=== PATIENT | female | born 1945 | race Caucasian/White ===

== ENCOUNTER 2020-04-18 06:59 | Observation (INO) ==
--- NOTE | 2020-04-18 08:07 | History & Physical Bridge Note ---
Date of Service April 18, 2020 History & Physical Bridge Note I have examined the patient, reviewed the History & Physical and in the interval since the performance of the History & Physical I have noted the following changes of clinical significance: no changes noted
--- NOTE | 2020-04-18 08:08 | Pre Anesthesia Assessment ---
Date of Service April 18, 2020 Pre Sedation Assessment Vital Signs Pulse Resp BP Pulse Ox 04/18/20 07:41 79 20 143/89 H 99 Cardiovascular RRR, no murmur, no edema Respiratory normal respiratory effort, lungs clear to auscultation Pre-Sedation Airway Assessment Smoking Status: Former smoker Hx Sleep Apnea: No Short, Thick Neck: No Thyromental Distance: > or= 3.5 Finger Breadths Oral Cavity: + WNL Mallampati Class: II ASA: ASA3 NPO Status Date of Last Intake of Fluids: 04/18/20 Time of Last Intake of Fluids: 06:00 Date of Last Intake of Solid Food: 04/17/20 Time of Last Intake of Solid Foods: 21:00 Procedure Planning Contraindications for Sedation: none Current Medications Reviewed: Yes Notes The planned sedation has been discussed with the patient. Informed Consent was obtained. I have identified the patient, determined the appropriateness of sedation and have assessed the patient immediately prior to the procedure. All medicine(s) and interventions are by my order.
[2020-04-18] MEDS ORDERED: HEPARIN (PORCINE) 1000 UNIT/ML 10 ML (CATH LAB USE ONLY) ONE (08:14)
[2020-04-18] MEDS ORDERED: fentaNYL citrate 100 MCG/2 ML VIAL ONE (08:15)
[2020-04-18] MEDS ORDERED: MIDAZOLAM HCL 1 MG/ML 2ML VIAL ONE (08:16)
[2020-04-18] MEDS ORDERED: NiCARDipine HCL INJ 2.5 MG/ML 10 ML AMP ONE (08:17)
[2020-04-18] MEDS ORDERED: NITROGLYCERIN/D5W 100MCG/ML 20ML SYR ONE (08:17)
[2020-04-18] MEDS ORDERED: FUROSEMIDE 40 MG/4 ML VIAL IV ONE (09:05)
--- NOTE | 2020-04-18 09:23 | Cardiac Catheterization ---
Cardiac Cath Procedure Full Procedure Date April 18, 2020 Pre-Procedure Diagnosis Pre-Procedure Diagnosis: Angina and Positive Stress Test AUC Score AUC Score: 7 Post-Procedure Diagnosis Post-Procedure Diagnosis: Severe CAD and Elevated Intracardiac Pressures Procedure(s) Performed Procedure(s) Performed: Coronary Angiography and Left Heart Cath Eye Glass Frame Polisher Cal Tovar DO Manager Of Warehouse(s) Doyle FLOOR MOLDER Estimated Blood Loss Estimated Blood Loss: 7cc Medication(s) Medication(s): Fentanyl, Heparin, Lidocaine 1%, Nicardipine, Nitroglycerin and Versed Summary of Findings 75% ostial RPDA Elevated left ventricular end diastolic pressure Hemodynamics Rest Ao:: 135/66/87 Final Ao: 146/66/101 LV: 138/-08/28 Recommendations Recommendations: PCI without planned CABG Specimens Specimens: None Radiation Exposure (mGy) 994 Contrast (mls) 35 Fluids (cc crystalloids) Fluids (cc crystalloids): 15 Nss Drains Drains: N/A Anesthesia Moderate sedation. Start 0837. Stop 0903. Sedation Monitor: Louis MOSLEY Procedural Complication(s) None Disposition Patient remained in labor specialist for PCI I attest to the content of the Intraoperative Record and any orders documented therein. Any exceptions are noted below. 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 Lexiscan nuclear stress positive for posterior ischemia 2013) Coronary Anatomy Dominant: Right Left Main (% Stenosis): Normal LAD (% Stenosis): Proximal (30%, mild calcification) and Mid (20% distal to D2) D1 (% Stenosis): Normal D2 (% Stenosis): Normal D3 (% Stenosis): Normal Circumflex (% Stenosis): Normal OM1 (% Stenosis): Normal OM2 (% Stenosis): Normal OM3 (% Stenosis): Normal L PL1 (% Stenosis): Normal RCA (% Stenosis): Proximal (30-40% followed by segament of mild diffuse disease 20%) and Distal (10%) R PDA (% Stenosis): Ostial (75%) R PL1 (% Stenosis): Normal R PL2 (% Stenosis): Normal Diagnostic Physicians Name: Cal Tovar DO Status: Elective Closure Device Percutaneous Entry Location: Radial Closure Device: Radial Band Recommendations: PCI without planned CABG Intraprocedure Events Significant Disection: No Perforation: No
[2020-04-18] MEDS ORDERED: CLOPIDOGREL BISULFATE 300 MG TAB ONE (09:31)
--- NOTE | 2020-04-18 09:36 | Post Anesthesia Assessment ---
Date of Service April 18, 2020 Post Sedation Assessment Vital Signs Pulse Resp BP Pulse Ox 04/18/20 07:41 79 20 143/89 H 99 Recovery Score Activity: Moves 4 extremities Respiration: Deep Breath/Cough Circulation: +/-20% PreAnes Value Consciousness: Fully Awake Oxygen Saturation: > 92% On Room Air Discharge Sedation Level of Care: Fast Track Phase II Post Sedation Plan On clinical assessment, the patient appears to have tolerated the sedation without complications. Patient is recovering as anticipated. Patient will continue to be monitored by nursing and may be discharged when sedation discharge criteria are met per below protocol. Upon Completions of procedure up to 15 minutes continue every 5 minute vital signs and the P.A.R. score; then discharge to a Phase I or Fast Track to Phase II per the following guidelines: * Discharge Patient to appropriate Phase II area if PAR is 8 or greater or return to pre- procedure baseline. The post - procedure orders will be as directed. * If PAR score is less than 8 or not return to pre-procedure baseline then patient will follow Phase I monitoring till PAR is reached for Phase II. The Phase I may be done in procedure room or may call to secure a Phase I area. * If naloxone or flumazenil are used for reversal, hold in Phase I for continued monitoring from when last reversal dose was given for a minimum of 60 minutes or longer pending the nurse and/or physician discretion of patient condition before discharge to Phase II. Please call the Sedation Physician to re-evaluate and complete post-note for discharge to Phase II area. Do NOT discharge from procedure sedation or Phase 1 until post- sedation evaluation note is complete by procedure /sedation MD Sedation Discharge Instructions to be given to the patient at discharge to home.
[2020-04-18] MEDS ORDERED: ONDANSETRON INJ 2 MG/ML 2 ML VIAL IV PRN (09:44)
[2020-04-18] MEDS ORDERED: ACETAMINOPHEN 325 MG TAB PO PRN (09:44)
[2020-04-18] MEDS ORDERED: NITROGLYCERIN SL 0.4 MG/TAB TAB SL PRN (09:44)
--- NOTE | 2020-04-18 09:44 | Cardiac Catheterization ---
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 Cardiac Status Clinical evaluation leading to the procedure CAD Presenation: Stable angina Anginal Classification: CCS III Heart Failure: No Cardiogenic Shock within 24 Hours: No Cardiac Arrest within 24 Hours: No Imaging Studies Past 6 Months: Yes Stress Studies Past 6 Months: Yes Stress Echocardiogram: Yes - Negative Diagnostic Physicians Name: Mika Villa MD Closure Device Percutaneous Entry Location: Radial Closure Device: Radial Band Recommendations: PCI without planned CABG PCI Indication: Angina despite med therapy Lesion Segment Name: ostial PDA Culprit Artery: Yes Stenosis Prior to Rx (%): 80 Chronic Total Occlusion: No IVUS: No FFR: No Pre-Procedure MECCA Flow: 3 Previously Treated Lesion: No Lesion Complexity: Non-High/Non-C Thrombus Present: No Bifurcation Lesion: Yes Guidewire Across Lesion: Stenosis Post-Procedure (%): 0 Post-Procedure MECCA Flow: 3 Devices(s) Deployed: Yes Yes Intraprocedure Events Significant Disection: No Perforation: No Cardiac Cath Procedure Full Procedure Date April 18, 2020 Pre-Procedure Diagnosis Pre-Procedure Diagnosis: Angina AUC Score AUC Score: 7 Post-Procedure Diagnosis Post-Procedure Diagnosis: Severe CAD and Successful PCI Procedure(s) Performed Procedure(s) Performed: Coronary Angiography and Drug Eluting Stent Coal Unloader Mika Villa MD Coal Cager(s) Doyle ZIMMERMAN Estimated Blood Loss Estimated Blood Loss: 15 Medication(s) Medication(s): Clopidogrel, Fentanyl, Heparin, Nicardipine, Nitroglycerin and Versed Summary of Findings Indication: Refractory angina Access: 6Fr right radial artery Catheters: JR4 guide Findings: For full details of patient's coronary angiography please see cath report dictated by Dr. Tovar. Briefly, patient found to have severe single vessel disease with a 80% stenosis involving his Right PDA. Decision to proceed with PCI. -- PCI -- Antithrombotic therapy: Heparin, Clopdiogrel Procedure: RCA cannulated with JR4 guide Case Management Social Worker 50 wire passed across lesion into distal PDA BMW wire placed into distal R-PLB PDA lesion predilated with 2.0 compliant balloon Dilated lesion stented with 2.25 x 12 mm Xience mary Stent post-dilated with stent balloon IC vasodilators administered for spasm Post procedure MECCA 3 flow, stent well expanded with minimal residual stenosis and no apparent cardiac complications. Mild new residual stenosis at ostium of R-PLB Arterial Closure: TR band Summary: 1. Successful PCI of ostial R-PDA with single KALYANI (2.25 x 12 mm Xience Mary). Recommendations: To PCU for continued monitoring Loaded with Clopidogrel 600mg in manager cath lab Continue dual-antiplatelet therapy for at least 6 months. Continue statin, and ASCVD risk factor modification Consult cardiac Rehab Hemodynamics Rest Ao:: 134/57/100 Final Ao: 153/48/130 LV: -- Recommendations Recommendations: PCI without planned CABG Specimens Specimens: None Radiation Exposure (mGy) 2095 Contrast (mls) 110 Fluids (cc crystalloids) Fluids (cc crystalloids): 25 Drains Drains: N/A Anesthesia Moderate sedation. Procedural Complication(s) None Disposition PCU I attest to the content of the Intraoperative Record and any orders documented therein. Any exceptions are noted below. [facility] Card Cath Procedure Codes Moderate Sedation Procedure 1: Sedation/Anesthesia: 48927 Mod Sedation by the same physician; Ea [id number] Minutes Stenting Procedure 1: Cardiovascular Stent Procedures: 08704 Perc transcatheter placement of intracoronary stent(s), with ang PG Care Time/CCT Total # of Minutes Spent Total Time Spent with Patient: Total time spent is greater than 50% in coordination of care (as documented) at patient's floor/unit and/or counseling patient:
[2020-04-18] MEDS ORDERED: ALBUTEROL HFA 8 GM INHALER INH PRN (09:58)
[2020-04-18] MEDS ORDERED: HYDROCODONE/ACETAMOPHEN 5/325MG TAB PO PRN (09:59)
[2020-04-18] MEDS ORDERED: SENNA 8.6 MG TAB PO PRN (09:59)
[2020-04-18] MEDS ORDERED: SODIUM CHLORIDE 0.9% 1000ML 1,000 ML IV SCH (10:00)
--- NOTE | 2020-04-18 19:21 | Electrocardiogram Report ---
Test Reason : Blood Pressure : / mmHG Vent. Rate : 081 BPM Atrial Rate : 081 BPM P-R Int : 136 ms QRS Dur : 082 ms QT Int : 390 ms P-R-T Axes : 024 010 074 degrees QTc Int : 453 ms Normal sinus rhythm Nonspecific ST abnormality When compared with ECG of 18-DEC-2013 00:01, Vent. rate has increased BY 27 BPM QT has lengthened Confirmed by Mika Doll ([id number]) on 04/18/2020 7:21:40 PM Referred By: Willis Lux Confirmed By:Jaren Doll
[2020-04-18] MEDS ORDERED: ASPIRIN 81 MG PO SCH (21:00)
[2020-04-19 05:38] LABS: Basophils # (auto) 0.04 K/uL (0-0.2); Basophils % (auto) 0.6 %; Eosinophils # (auto) 0.41 K/uL (0-0.5); Eosinophils % (auto) 5.7 %; Hematocrit (blood only) 41.4 % (37-47); Hemoglobin 14.2 g/dL (12.0-16.0); Immature Granulocytes # (auto) 0.01 K/uL (0.00-0.02); Immature Granulocytes % (auto) 0.1 %; Lymphocytes # (auto) 1.57 K/uL (1.2-3.4); Lymphocytes % (auto) 21.7 %; Mean Corpuscular Hemoglobin 32.7 pg (25-34); Mean Corpuscular Hgb Conc 34.3 g/dL (32-36); Mean Corpuscular Volume 95.4 fL (80-100); Mean Platelet Volume 10.4 fL (7.4-10.4); Monocytes # (auto) 0.43 K/uL (0.11-0.59); Monocytes % (auto) 5.9 %; Neutrophils # (auto) 4.79 K/uL (1.4-6.5); Platelet Count 241 K/uL (130-400); RDW Coefficient of Variation 13.2 % (11.5-14.5); Red Blood Count 4.34 M/uL (4.2-5.4); White Blood Count 7.25 K/uL (4.8-10.8)
[2020-04-19 06:05] LABS: BUN Creatinine Ratio 17.7 (10-20); Calcium 9.5 mg/dl (8.5-10.1); Creatinine Clr Calc Pharmacy 54.8 ml/min; Est GFR (African American) 77.7; Potassium 4.1 mmol/L (3.5-5.1)
[2020-04-19] MEDS ORDERED: ASPIRIN 81 MG ECTAB PO SCH (09:00)
[2020-04-19] MEDS ORDERED: CLOPIDOGREL BISULFATE 75 MG TAB PO SCH (09:00)
[2020-04-19] MEDS ORDERED: MULTIVITAMIN TAB PO SCH (09:00)
[2020-04-19] MEDS ORDERED: ATORVASTATIN 20 MG TAB PO SCH (09:00)
[2020-04-19] MEDS ORDERED: FLUTICASONE/VILANTEROL 100/25MCG 14 PUFFS/INHALER INH SCH (09:00)
[2020-04-19] MEDS ORDERED: dilTIAZem HCL 120 MG CAPCR PO SCH (09:45)
--- NOTE | 2020-04-19 10:21 | Cardiology Progress Note ---
Date of Service April 19, 2020 Assessment & Plan (1) CAD (coronary artery disease), [place] coronary artery: (2) S/P right coronary artery (RCA) stent placement: Ostial right posterior descending artery stent placed 04/18/2020 without complication. Patient tolerating dual antiplatelet therapy. Stressed importance of continuing dual antiplatelet therapy for minimum of 6 months post percutaneous intervention. Other cardiovascular medications including Cardizem CD and statin therapy will be continued as previously ordered. Post cardiac catheterization activity restrictions discussed. Outpatient cardiology follow- up as scheduled. Admission and Anticipated Discharge Date Admission Date: April 18, 2020 Subjective Patient seen and examined at the bedside. Feeling well overnight. No recurrent chest pain. No wrist ecchymosis or hematoma. Telemetry demonstrates sinus rhythm. Chronic cough unchanged. No orthopnea, PND, or lower extremity edema. Offers no concerns/complaints this morning. Review of Systems Review of Systems: All systems reviewed & are unremarkable except as noted in HPI & below Physical Exam Constitutional: well developed, well nourished and + obese Respiratory: normal respiratory effort, lungs clear to auscultation Auscultation: no crackles, no rales and no rhonchi Cardiovascular: Rate/Rhythm: regular rate and regular rhythm Heart Sounds: normal S1 and normal S2; no murmur Vessels: radial pulses present; no JVD Extremities: no edema Gastrointestinal (Abdomen): Inspection/Auscultation: abdomen normal to inspection and normal bowel sounds; abdomen not distended Percussion/Palpation: abdomen soft; abdomen nontender, no guarding and abdomen not rigid Skin: no rashes, warm and dry Neurologic: moves all extremities; no focal motor deficits Speech / Cognition: normal speech Psychiatric: A+Ox3, euthymic affect Results & Data ([facility]) Vital Signs (Past 12 Hours) Vital Signs Temp Pulse Pulse Resp BP BP Pulse Ox 04/19/20 07:50 66 04/19/20 07:23 36.4 C L 73 17 133/81 91 04/19/20 03:36 36.6 C 61 16 117/65 96 04/18/20 23:30 36.6 C 66 18 118/62 93 (1) CAD (coronary artery disease), [place] coronary artery [place] vs. transplanted heart: ramona heart Associated angina: with stable angina Qualified Code(s): I25.118 - Atherosclerotic heart disease of [place] coronary artery with other forms of angina pectoris
--- NOTE | 2020-04-19 10:32 | Discharge Summary ---
Date of Service April 19, 2020 Principal Diagnosis Coronary artery disease with stable angina, CCS class 3. Discharge Exam Constitutional well developed, well nourished and + obese ENMT Mallampati Class: II Respiratory normal respiratory effort, lungs clear to auscultation Auscultation: no crackles, no rales and no rhonchi Cardiovascular RRR, no murmur, no edema Rate/Rhythm: regular rate and regular rhythm Heart Sounds: normal S1 and normal S2; no murmur Vessels: radial pulses present; no JVD Extremities: no edema Gastrointestinal (Abdomen) Inspection/Auscultation: abdomen normal to inspection and normal bowel sounds; abdomen not distended Percussion/Palpation: abdomen soft; abdomen nontender, no guarding and abdomen not rigid Skin no rashes, warm and dry Neurologic moves all extremities; no focal motor deficits Speech / Cognition: normal speech Psychiatric A+Ox3, euthymic affect Discharge Data Allergies Allergy/AdvReac Type Severity Reaction Status Date / Time oxycodone AdvReac Unknown HALLUCINATI Verified 06/25/15 09:57 ONS Consultations 04/18/20 09:46 Consult Cardiac Rehabilitation Routine Procedures Performed Operation Date: 04/18/20 08:00 Actual Procedures p Cath, Left with Cors and Vent - Cal O La, DO p Cineradiography w/Routine Exam - Pancho Villa MD s Drug Eluting Stent SGl Vessel - Pancho Villa MD Ordered Studies 04/18/20 07:18 CL Cath Imgs for PACS use only Routine Hospital Course (1) CAD (coronary artery disease), [place] coronary artery: (2) S/P right coronary artery (RCA) stent placement: Patient presented for elective cardiac catheterization 04/18/2020 due to persistent exertional anginal symptoms and history of moderate right posterior descending artery stenosis. Ostial right posterior descending artery stent (KALYANI) placed 04/18/2020 without complication. Patient tolerating dual antip latelet therapy. Stressed importance of continuing dual antiplatelet therapy for minimum of 6 months post percutaneous intervention. Other cardiovascular medications including Cardizem CD and statin therapy will be continued as previously ordered. Post cardiac catheterization activity restrictions discussed. Outpatient cardiology follow-up as scheduled. Total Time Total Time Spent Total Time Spent (In Minutes): 35 minutes Total Time Includes: Examination of the Patient, Discharge Planning and Medication Reconciliation Discharge Plan Discharge Items Patient Disposition: Home - Self-Care Reason For Visit: Chest Heaviness, Dyspnea on Exertion, CAD Discharge Diagnosis: Coronary artery disease, angina pectoris, status post drug-eluting stent implantation to the right posterior descending artery Activity: Per Instructions section Non-emergency contact: Screw Driver Operator Call non-emergency contact if: you have any medication questions, your pain is not controlled, your pain is worsening, your pain is unusual for you and your pain is concerning for you Follow-up/Referrals: Enzo Vazquez MD [Primary Care Provider] - Diet: Heart Healthy Addtl Attending Provider Instructions: ACTIVITY RECOMMENDATIONS: It is common to feel weak and fatigue for a few days. * Do not drive or operate any motorized equipment for the next three days. * Limit stair usage (2 or 3 trips a day only) for the next three days. * Do not lift anything heavier than 10 pounds for the next three days. * Do not engage in vigorous exercise or any sports for the next five days. * You may shower the day after your procedure, but do not immerse the area for three days. Cleanse the site gently with soap and water. SPECIAL CARE INSTRUCTIONS: * You may replace the pressure dressing or band-aid the morning after the procedure. * After your procedure, it is normal to have a small bruise or small lump at the site. Examine your site daily for any change in the bruise or lump, redness, swelling, drainage or numbness. Notify your doctor if any change. BLEEDING: * If there is a small amount of bleeding at the site, lie down and apply firm pressure with a clean cloth for ten minutes. When the bleeding stops, lie quietly keeping the procedure limb straight for six hours. Notify your doctor as soon as possible. * If the bleeding does not stop after ten minutes or if there is a large amount of bleeding or spurting, call 911 immediately. Continue to lie down and hold firm pressure until help arrives. SKIN IRRITATION: * You may experience some redness and/or swelling in the area where radiation was administered. If any skin irritation occurs, please contact your family physician. FOLLOW UP VISIT: Keep any scheduled doctor appointments. Pending Studies at Discharge: No Stand-Alone Forms: My [employer], Smoking Cessation Medications and DC Order Prescriptions: New clopidogrel 75 mg Tablet 75 mg PO QAM Qty: 34 RF: 4 nitroglycerin [Nitrostat] 0.4 mg Tablet, Sublingual 0.4 mg sublingual PRN 34 Days Qty: 1 RF: 4 oxybutynin chloride 5 mg Tablet Extended Release 24hr 5 mg PO QAM Qty: 34 RF: 4 diltiazem HCl 120 mg Capsule,Extended Release 24hr 120 mg PO QAM Qty: 34 RF: 4 rosuvastatin [Crestor] 20 mg Tablet 40 mg PO QAM Qty: 34 RF: 4 Continued MOMETASONE FUROATE-FORMOTEROL (DULERA 200/5 MCG) 1 AER AER 2 aer Inhalation BID Qty: 0 RF: 0 Multivitamin tablet 1 tab PO QAM Qty: 0 RF: 0 Albuterol (Ventolin Hfa) AEROSOL,SOLN 2 puff Inhalation PRN (Reason: SOB/Wheezing) Qty: 0 RF: 0 ASPIRIN (ASPIRIN CHEWABLE) 81 MG CHEWABLE TAB 81 mg PO BID 30 Days Qty: 0 RF: 0 Hydrocodone/Acetaminophen 5MG/325MG ([place] 5MG/325MG) tablet 1 - 2 tab PO Q6H PRN (Reason: Pain) Qty: 60 RF: 0 Discontinued ATORVASTATIN (LIPITOR) 20 MG tablet 20 mg PO QAM Qty: 0 RF: 0 Celecoxib (Celebrex) 200 MG capsule 200 mg PO QD@08 30 Days Qty: 0 RF: 0 Senna (Senna Lax) 8.6 MG tablet 17.2 mg PO HS 14 Days Qty: 0 RF: 0 Discharge Orders: Discharge Order (Routine); Ordered 04/19/20 Ordered By: Cal Tovar Admission Data Admit Date/Time: 04/18/20 09:23 Attending Provider: Cal Tovar Admit Provider: Cal Tovar Primary Care Provider: Enzo Vazquez
[2020-04-20] MEDS ORDERED: OXYBUTYNIN CHLORIDE XL 5 MG TABCR PO SCH (09:00)
[2020-04-20] MEDS ORDERED: ROSUVASTATIN CALCIUM 20 MG TAB PO SCH (09:00)
== END 2020-04-19 12:08 | disposition home or self-care (01) ==
LOC: CC 06:59 → 2S 06:59